=== PATIENT | male | born 2000 | race Caucasian/White ===

== ENCOUNTER 2020-05-06 09:24 | Emergency (ER) | payer SELFPAY ==
[~2020-05-06] VITALS: Ht 175.3 cm; Wt 75.0 kg
[2020-05-06 09:25] VITALS: BP 123/85
== END 2020-05-06 09:45 | disposition left against medical advice (07) ==
LOC: EMS 09:34
DX: R06.02 Shortness of breath (principal); Z53.21 Procedure and treatment not carried out due to patient leaving prior to being seen by health care provider